=== PATIENT | male | born 1945 | race Caucasian/White ===

== ENCOUNTER 2021-03-10 11:04 | Outpatient (REF) | payer MEDICARE, SELFPAY ==
--- NOTE | ~2021-03-10 | CT_ITS ---
EXAMINATION: CT HIP WITHOUT CONTRAST, LEFT CLINICAL INFORMATION: Hip arthroplasty. Suspect loosening. COMPARISON: Most recent outside hip and pelvic radiographs dated 06/22/2020. TECHNIQUE: Contiguous axial CT images of the left hip were obtained without contrast. Multiplanar reformats were provided and reviewed. This CT examination was performed using dose optimization techniques as appropriate, variously including the following: *Automated exposure control *Adjustment of mA and/or kV according to patient size (this includes techniques or standardized protocols for targeted exams where dose is matched to indication/reason for exam; i.e. extremities or head) *Use of iterative reconstruction technique DLP: 265 mGy-cm FINDINGS: Redemonstration of a left hip arthroplasty. No acute hardware fracture. No perihardware lucency to suggest loosening or infection. No acute osseous fracture. There is slight asymmetry of the femoral component which lies slightly superiorly and laterally within the acetabular cup, consistent with asymmetric acetabular wear. This appears similar when compared to the prior radiographs and is also noted on the right hip arthroplasty. No concerning lytic or blastic osseous lesion. 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 The visualized intrapelvic structures are grossly unremarkable, however, evaluation is limited due to streak artifact. CT/CT hip LT wo con IMPRESSION: Left hip arthroplasty without acute hardware or osseous fracture. No perihardware lucency to suggest loosening or infection. Slight superior and lateral lie of the femoral component within the acetabular cup, consistent with asymmetric acetabular wear. This appears similar when compared to the prior outside radiographs where it is also noted at the right hip arthroplasty.
== END 2021-03-10 11:05 | disposition home or self-care (01) ==
LOC: HO.CT 11:04
PROVIDERS: Visit Provider Orthopaedic Surgery
DX: T84.061D Wear of articular bearing surface of internal prosthetic left hip joint, subsequent encounter (principal); T84.021D Dislocation of internal left hip prosthesis, subsequent encounter; T84.05 Periprosthetic osteolysis of internal prosthetic joint
CPT/HCPCS: 73700